=== PATIENT | male | born 1955 | race Caucasian/White ===

== ENCOUNTER 2016-08-12 20:00 | Emergency (ER) | payer OTHER ==
--- NOTE | 2016-08-12 20:14 | PDOC ---
History of Present Illness - General History Source: Patient Exam Limitations: No Limitations <Mariah Daniels I - Last Filed: 08/12/16 20:14> - General History Source: Patient, Old Records Exam Limitations: No Limitations - History of Present Illness Initial Comments: 08/12/16 20:21 The patient is a 61 year old male, who presents to the emergency department with back pain onset today. He describes the back pain as moderate, without radiation and localized in the lower back. He states that the change in position exacerbates the pain. He notes that sitting and walking does not exacerbate his pain. He states that he was doing light garden work when the pain started and was not able to move well due to the pain. He denies any heavy lifting at the time. He states that he took 2 aleves around 5:30pm with minimal relief. The patient denies chest pain, shortness of breath, headache and dizziness. Denies fever, chills, nausea, vomit, diarrhea and constipation. Denies dysuria, frequency, urgency and hematuria. PAST MEDICAL HISTORY: Kidney stones, GERD, HTN, BPH PAST SURGICAL HISTORY: no significant history FAMILY HISTORY: no pertinent history SOCIAL HISTORY: Pt lives with family and is employed. MEDICATIONS: reviewed ALLERGIES: As per nursing notes <Aj Groves - Last Filed: 08/12/16 20:21> - General Chief Complaint: Back Pain Stated Complaint: RT SIDED BACK PAIN Time Seen by Provider: 08/12/16 20:06 Past History - Past Medical History Anemia: No Asthma: No Cancer: No Cardiac Disorders: No CVA: No COPD: No CHF: No Dementia: No Diabetes: No GI Disorders: Yes (GERD) Disorders: Yes (BPH,KIDNEY STONES) HTN: Yes Hypercholesterolemia: No Kidney Stones: Yes Liver Disease: No Seizures: No Thyroid Disease: No - Surgical History Abdominal Surgery: No Appendectomy: No Cardiac Surgery: No Cholecystectomy: No Lung Surgery: No Neurologic Surgery: No Orthopedic Surgery: No - Psycho/Social/Smoking Cessation Hx Anxiety: No Suicidal Ideation: No Smoking History: Never smoked Have you smoked in the past 12 months: No Information on smoking cessation initiated: No Hx Alcohol Use: (occasional) Drug/Substance Use Hx: No Substance Use Type: Alcohol Hx Substance Use Treatment: No <Mariah Daniels I - Last Filed: 08/12/16 20:14> <Aj Groves - Last Filed: 08/12/16 20:21> - Past Medical History Allergies/Adverse Reactions: Allergies Allergy/AdvReac Type Severity Reaction Status Date / Time latex Allergy Verified 08/12/16 20:04 No Known Drug Allergies Allergy Verified 08/12/16 20:04 Home Medications: Ambulatory Orders Atenolol [Tenormin -] 50 mg PO HS 08/22/14 Cholecalciferol (Vitamin D3) [Vitamin D3] 4,000 unit PO HS 08/22/14 Finasteride 5 mg PO DAILY 08/22/14 Tamsulosin HCl [Flomax -] 0.4 mg PO HS 08/22/14 Pantoprazole Sodium [Protonix -] 40 mg PO DAILY #30 tablet.ec 06/30/15 Cyclobenzaprine HCl [Flexeril 10 mg] 10 mg PO HS #15 cap 08/12/16 Naproxen [Naprosyn -] 500 mg PO BID #14 tablet 08/12/16 Review of Systems - Review of Systems Able to Perform ROS?: Yes Comments:: 08/12/16 20:21 General: No fevers or chills, no weakness, no weight loss HEENT: No change in vision. No sore throat,. No ear pain CardioVascular: No chest pain or shortness of breath Respiratory:No cough, or wheezing. Gastrointestinal: no nausea, vomiting, diarrhea or constipation, No rectal bleeding Genitourinary: No dysuria, hematuria, or frequency Musculoskeletal: +Lower back pain. No joint or muscle pain or swelling Neurologic: No headache, vertigo, dizziness or loss of consciousness Psychiatric: nor depression Skin: No rashes or easy bruising Endocrine: no increased thirst or abnormal weight change Allergic: no skin or latex allergy All other systems reviewed and normal <Aj Groves - Last Filed: 08/12/16 20:21> *Physical Exam - Vital Signs Last Vital Signs Temp Pulse Resp BP Pulse Ox 98.1 F 94 H 18 141/85 96 08/12/16 20:00 08/12/16 20:00 08/12/16 20:00 08/12/16 20:00 08/12/16 20:00 <Mariah Daniels I - Last Filed: 08/12/16 20:14> - Vital Signs Last Vital Signs Temp Pulse Resp BP Pulse Ox 98.1 F 94 H 18 141/85 96 08/12/16 20:00 08/12/16 20:00 08/12/16 20:00 08/12/16 20:00 08/12/16 20:00 - Physical Exam Comments: 08/12/16 20:21 GENERAL: The patient is awake, alert, and fully oriented, in no acute distress. HEAD: Normal with no signs of trauma. EYES: Pupils equal, round and reactive to light, extraocular movements intact, sclera anicteric, conjunctiva clear. EXTREMITIES: Normal range of motion, no edema. BACK: No pain over spinal regions, no pain on palpation over the sciatic notch. No pain on either the right or left CVA. NEUROLOGICAL: Normal speech, normal gait. PSYCH: Normal mood, normal affect. SKIN: Warm, Dry, normal turgor, no rashes or lesions noted. <Aj Groves - Last Filed: 08/12/16 20:21> ED Treatment Course - Medications Given in the ED: ED Medications Discontinued Medications Generic Name Dose Route Start Last Admin Trade Name Freq PRN Reason Stop Dose Admin Ketorolac Tromethamine 60 mg 08/12/16 20:19 08/12/16 20:20 Toradol Injection - IM 08/12/16 20:20 60 mg ONCE ONE Administration <Aj Groves - Last Filed: 08/12/16 20:21> *DC/Admit/Observation/Transfer - Discharge Dispostion Admit: No <Mariah Daniels I - Last Filed: 08/12/16 20:14> - Attestations Scribe Attestion: 08/12/16 20:21 Documentation prepared by Aj Groves, acting as medical historian for Mariah Daniels MD <Aj Groves - Last Filed: 08/12/16 20:21> Diagnosis at time of Disposition: Low back pain Qualifiers: Chronicity: acute Back pain laterality: right Sciatica presence: without sciatica Qualified Code(s): M54.5 - Low back pain - Discharge Dispostion Disposition: HOME Condition at time of disposition: Stable - Prescriptions Prescriptions: Cyclobenzaprine HCl [Flexeril 10 mg] 10 mg PO HS #15 cap Naproxen [Naprosyn -] 500 mg PO BID #14 tablet - Patient Instructions Printed Discharge Instructions: DI for Low Back Pain Additional Instructions: For the pain take Naprosyn 1 tablet twice a day For muscle spasm you can take Flexeril one tablet before bed if needed the Flexeril will make you drowsy so try to limit it to the nighttime hours. Return to the emergency department immediately with ANY new, persistent or worsening symptoms. Continue any medications as previously prescribed by your physician. You should follow up with your primary doctor as soon as possible regarding today's emergency department visit. . Please make sure your doctor reviews the results of your emergency evaluation. Thank you for coming to the Emergency Department today for your care. It was a pleasure to see you today. Please note that your evaluation is INCOMPLETE until you follow-up with your doctor.
[2016-08-12] MEDS ORDERED: KETOROLAC TROMETHAMINE 60 MG/2 ML VIAL ONE (20:15)
[2016-08-12] MEDS ORDERED: KETOROLAC TROMETHAMINE 60 MG/2 ML VIAL IM ONE (20:19)
[2016-08-12 20:28] VITALS: BP 141/85; PULSE 94; TEMP 98.1; BMI 27.3
== END 2016-08-12 20:20 | disposition home or self-care (01) ==
LOC: FER 20:00
PROC: 3E0233Z Introduction of Anti-inflammatory into Muscle, Percutaneous Approach (ICD-10-PCS; principal; 2016-08-12)
DX: M54.5 Low back pain (principal); K21.9 Gastro-esophageal reflux disease without esophagitis; N40.0 Benign prostatic hyperplasia without lower urinary tract symptoms; I10 Essential (primary) hypertension; Z87.442 Personal history of urinary calculi
CPT/HCPCS: 99283-25

== ENCOUNTER 2022-07-06 08:01 | Day surgery (SDC) | payer OTHER, MEDICARE ==
[2022-07-03 16:07] VITALS: BMI 25.8
[2022-07-06 08:21] VITALS: TEMP 97.8
[2022-07-06 09:13] VITALS: BP 114/52; PULSE 73; RESP 19
== END 2022-07-06 09:35 | disposition home or self-care (01) ==
LOC: FASU-ENDO 08:01
PROVIDERS: ATTEND Internal Medicine Gastroenterology
PROC: 0DJD8ZZ Inspection of Lower Intestinal Tract, Via Natural or Artificial Opening Endoscopic (ICD-10-PCS; principal; 2022-07-06 08:36)
DX: Z12.11 Encounter for screening for malignant neoplasm of colon (principal); Z86.010 Personal history of colon polyps
CPT/HCPCS: 82962